=== PATIENT | male | born 1995 | race Caucasian/White ===

== ENCOUNTER 2017-07-04 12:50 | Inpatient (IN) | payer BC, OTHER ==
[~2017-07-04] VITALS: Ht 162.6 cm; Wt 74.2 kg
--- NOTE | 2017-07-04 13:17 | EMERGENCY ROOM VISIT NOTE ---
History Report prepared by Scribe: Jenna Berry Under the Supervision of: Dr. Santos Machado M.D. First contact with patient: 12:54 Chief Complaint: ALCOHOL OVERDOSE Stated Complaint: ALCOHOL OVERDOSE History of Present Illness The patient is a 21 year old white male with no documented past medical history who presents to the Emergency Room with complaints of episode of an alcohol overdose occurring just prior to arrival. History limited secondary to intoxication. Source of History: patient History Limited By: intoxication Onset: just prior to arrival Timing: other (episode) Review of Systems ROS limited secondary to intoxication Past Medical & Surgical Medical Problems: (1) Broken arm Limited secondary to intoxication. Family History Limited secondary to intoxication. Social History Smoking Status: Never Smoker Alcohol Use: occasionally Drug Use: none Housing Status: lives with roommate Occupation Status: employed Current/Historical Medications Unable to Obtain Active Prescriptions or Reported Meds Allergies Coded Allergies: No Known Allergies (Unverified , 08/23/15) Physical Exam Vital Signs Date Time Temp Pulse Resp B/P (MAP) Pulse Ox O2 Delivery O2 Flow Rate FiO2 07/04/17 17:30 66 20 92/34 98 07/04/17 17:00 69 16 93/49 98 07/04/17 16:34 82 16 90/44 96 Room Air 07/04/17 16:29 62 07/04/17 15:50 100/61 96 Room Air 07/04/17 14:30 65 16 104/49 97 07/04/17 13:33 69 20 104/59 94 Room Air 07/04/17 13:30 61 16 104/59 94 07/04/17 13:04 78 07/04/17 13:03 94 Room Air 07/04/17 12:57 35.9 71 14 111/84 96 Room Air Physical Exam GENERAL:NAD, Pt groans when asked questions. Pt was able to remove nasal trumpet. HENT: Normocephalic, atraumatic. EYES: Normal conjunctiva. Sclera non-icteric. PERRL. NECK: Supple. No nuchal rigidity. FROM. RESPIRATORY: Sonorous breath sound throughout. CTAB, no rhonchi, wheezing, crackles. CARDIAC: RRR, no MRG ABDOMEN: Soft, NTND, BS+ MSK: No LE edema NEURO: PERRL 3mm b/l, moves all 4s to painful stimuli SKIN: No rash or jaundice noted. No obvious signs of trauma to head, neck, back , abdomen or extremities. Medical Decision & Procedures Laboratory Results Test 07/04/17 13:43 Prothrombin Time 11.1 SECONDS (9.0-12.0) Prothromb Time International Ratio 1.0 (0.9-1.1) Total Bilirubin 0.3 mg/dl (0.2-1) Direct Bilirubin 0.1 mg/dl (0-0.2) Aspartate Amino Transf (AST/SGOT) 86 U/L (15-37) Alanine Aminotransferase (ALT/SGPT) 135 U/L (12-78) Alkaline Phosphatase 142 U/L (45-117) Total Protein 7.0 gm/dl (6.4-8.2) Albumin 4.2 gm/dl (3.4-5.0) Laboratory results reviewed by me ED Course 1300: The patient was evaluated in room A11B. A complete history and physical exam was performed. Medical Decision The patient is a 21 year old white male with no documented past medical history who presents to the Emergency Room with complaints of episode of an alcohol overdose occurring just prior to arrival. Differential diagnosis: Etiologies such as alcohol intoxication, toxicologic, infection, hypoglycemia, electrolyte abnormalities, cardiac sources, intracerebral event, neurologic, as well as others were entertained. Patient was seen and evaluated the bedside. Patient had a nasal trumpet placed which point patient moved all 4 extremities. Patient's eyes were equally round and reactive to light. Patient was later up and had to be redirected back into bed. GCS 11. His alcohol was elevated at 490. Patient's BNP was fairly unremarkable. I sent her care to Dr. Beaver pending reassessment and possible d/c to home if clinically sober and safe for discharge. Medication Reconcilliation Current Medication List: was personally reviewed by me Impression Primary Impression: Alcoholic intoxication Additional Impression: Alteration consciousness Scribe Attestation The scribe's documentation has been prepared under my direction and personally reviewed by me in its entirety. I confirm that the note above accurately reflects all work, treatment, procedures, and medical decision making performed by me. Departure Information Dispostion Still a Patient Prescriptions Unable to Obtain Active Prescriptions or Reported Meds Referrals No Doctor, Assigned (PCP) Patient Instructions [facility] Problem Qualifiers Primary Impression: Alcoholic intoxication Complication of substance-induced condition: uncomplicated Qualified Codes: F10.920 - Alcohol use, unspecified with intoxication, uncomplicated
[2017-07-04 14:22] LABS: BLOOD UREA NITROGEN 14 mg/dl (7-18); BUN/CREATININE RATIO 12.7 (10-20); CALCIUM 8.4 mg/dl (8.5-10.1); CARBON DIOXIDE 22 mmol/L (21-32); CHLORIDE 108 mmol/L (98-107); GLUCOSE 143 mg/dl (70-99); POTASSIUM 3.5 mmol/L (3.5-5.1); SODIUM 140 mmol/L (136-145)
--- NOTE | 2017-07-04 17:59 | History and Physical ---
History & Physical Date & Time of Service: Jul 04, 2017 at 17:51 Chief Complaint: Alcohol Overdose Primary Care Physician: No Doctor, Assigned History of Present Illness Source: hospital records, EMS The patient is a 21-year-old male brought into the emergency department due to excessive intoxication. His history of present illness is otherwise limited due to nonresponsiveness. Past Medical/Surgical History Medical Problems: (1) Broken arm Status: Resolved Family History Unknown due to nonresponsive state Social History Unknown due to nonresponsive state Smoking Status: Never Smoker Immunizations History of Influenza Vaccine: Unknown History of Tetanus Vaccine?: Unknown History of Pneumococcal: Unknown History of Hepatitis B Vaccine: Unknown Allergies Coded Allergies: No Known Allergies (Unverified , 08/23/15) Home Medications Unable to Obtain Active Prescriptions or Reported Meds Review of Systems His review of systems is not able to be done due to his nonresponsive state. Physical Exam Vital Signs Date Time Temp Pulse Resp B/P (MAP) Pulse Ox O2 Delivery O2 Flow Rate FiO2 07/04/17 16:34 82 16 90/44 96 Room Air 07/04/17 16:29 62 07/04/17 15:50 100/61 96 Room Air 07/04/17 14:30 65 16 104/49 97 07/04/17 13:33 69 20 104/59 94 Room Air 07/04/17 13:30 61 16 104/59 94 07/04/17 13:04 78 07/04/17 13:03 94 Room Air 07/04/17 12:57 35.9 71 14 111/84 96 Room Air The patient is nonresponsive, normocephalic and atraumatic, lying in bed and in no acute distress. HEENT--PERRL, EOMI, mucous membranes and oropharynx dry. Neck--supple, no JVD or bruits, thyroid normal, trachea midline, no adenopathy. Heart--normal S1 and S2, no extra beats, no murmurs, rubs or gallops. Lungs--clear bilaterally but overall diminished due to sedation, no respiratory distress, no accessory muscle use. Abdomen--normal bowel sounds and soft, nondistended, no hernias or masses, no organomegaly. Extremities--no cyanosis, clubbing or edema. There are good distal pulses b/l. Dermatologic--normal skin turgor, normal color, warm and dry, no abnormal lymph nodes, no rash. Neurologic--limited testing due to nonresponsive state Rheumatologic--limited testing due to nonresponsive state Psychiatric--sedated and nonresponsive. Diagnostics Laboratory Results Results Past 24 Hours Test 07/04/17 13:43 07/04/17 17:28 07/04/17 17:29 Range/Units Sodium Level 140 136-145 mmol/L Potassium Level 3.5 3.5-5.1 mmol/L Chloride Level 108 98-107 mmol/L Carbon Dioxide Level 22 21-32 mmol/L Anion Gap 10.0 3-11 mmol/L Blood Urea Nitrogen 14 7-18 mg/dl Creatinine 1.10 0.60-1.40 mg/dl Estimated GFR () 109.9 Estimated GFR (Non- 94.8 BUN/Creatinine Ratio 12.7 10-20 Random Glucose 143 70-99 mg/dl Calcium Level 8.4 8.5-10.1 mg/dl Ethyl Alcohol mg/dL 491.0 0-3 mg/dl Impression Assessment and Plan Alcohol intoxication/overdose--alcohol level was 491. Admitted to the telemetry unit for monitoring. Normal saline with potassium chloride 20 mEq at 150 ML's per hour. Famotidine 20 mg IV every 12 hours. Zofran 4 mg IV every 6 hours when necessary. I've added a CBC with differential, liver profile, PT/INR and hemoglobin A1c to current ED labs. We'll repeat any abnormal labs in the a.m. including alcohol level. Level of Care Telemetry Resuscitation Status FULL RESUSCITATION VTE Prophylaxis VTE Risk Assessment Done? Y/N: Yes Risk Level: Moderate Given or contraindicated: SCD's
[2017-07-04] MEDS ORDERED: ONDANSETRON INJ 2 MG/ML 2 ML VIAL IV PRN (18:00)
[2017-07-04 18:15] VITALS: O2SAT 96; Ht 162.6 cm; Wt 74.2 kg
[2017-07-04 18:16] VITALS: O2SAT 96
[2017-07-04 18:19] LABS: PROTHROMBIN TIME (PATIENT) 11.1 SECONDS (9.0-12.0)
[2017-07-04 18:21] LABS: BASO % 0.6 %; BASO ABS # 0.04 K/uL (0-0.2); COMPLETE YES; EOS % 1.1 %; HEMATOCRIT 44.2 % (42-52); IG% 0.6 %; LYMPH % 27.1 %; MEAN CELL VOLUME 93.6 fL (80-100); MEAN CORPUSCULAR HEMOGLOBIN 32.8 pg (25-34); MEAN CORPUSCULAR HGB CONC 35.1 g/dl (32-36); MONO % 14.8 %; NEUT % 55.8 %; PLATELET COUNT 229 K/uL (130-400); RED BLOOD COUNT 4.72 M/uL (4.7-6.1); WHITE BLOOD COUNT 6.27 K/uL (4.8-10.8)
[2017-07-04 19:00] VITALS: BP 122/61; PULSE 99; TEMP 36.5; O2SAT 100
--- NOTE | 2017-07-04 19:02 | DIAGNOSTIC IMAGING REPORT ---
HEAD WITHOUT CONTRAST (CT) CLINICAL HISTORY: 21 years-old Male with AMS, ETOH. Acute altered mental status with alcohol intoxication. Initial exam. TECHNIQUE: Multiple axial CT images of the head were obtained without contrast. A dose lowering technique was utilized adhering to the principles of ALARA. CT DOSE: 1400.53 mGy.cm COMPARISON: None. FINDINGS: No acute intracranial hemorrhage, midline shift, mass, large territorial ischemia or abnormal extra-axial collection. The calvarium is intact. Mild polypoid mucosal disease involves the left maxillary sinus with small air-fluid level. Mild ethmoid and sphenoid sinus disease also noted. Mastoid air cells and middle ear cavities are clear. Soft tissues are unremarkable. Orbits are symmetric.. IMPRESSION: 1. No acute intracranial abnormality. 2. Mild paranasal sinus disease. The above report was generated using voice recognition software. It may contain grammatical, syntax or spelling errors. Electronically signed by: Tristen Lopez M.D. 07/04/2017 7:01 PM Dictated Date/Time: 07/04/2017 6:58 PM
--- NOTE | 2017-07-04 19:19 | EMERGENCY ROOM VISIT NOTE ---
ED Visit Note First contact with patient: 16:07 I received this patient in signout at the change of shift from Dr. Machado, pending a more sober state. The patient was reevaluated several hours after arrival to the emergency department with continued essential unresponsiveness. He does occasionally moan with painful stimuli. A CT scan of the head was performed and is negative for acute intracranial abnormality. The patient's case was discussed with the hospitalist service who will evaluate the patient for admission and further management. I did contact the patient's mother and father. They were made aware of the patient's condition and plans for admission. Diagnosis: Severe alcohol intoxication
[2017-07-04] MEDS: NSS + 20MEQ KCL 1000ML 1,000 ML IV SCH (20:33)
[2017-07-04] MEDS: FAMOTIDINE IV INJ 20 MG in DEXTROSE 5% 100ML 100 ML IV SCH (20:33)
[2017-07-04 23:50] VITALS: BP 114/57; PULSE 76; TEMP 36.7; O2SAT 97
[2017-07-05] MEDS: NSS + 20MEQ KCL 1000ML 1,000 ML IV SCH (03:07)
[2017-07-05 04:02] VITALS: BP 102/55; PULSE 67; TEMP 36.8; O2SAT 97
[2017-07-05 07:09] LABS: BASO % 0.6 %; BASO ABS # 0.03 K/uL (0-0.2); COMPLETE YES; EOS % 1.4 %; IG% 0.8 %; LYMPH % 45.8 %; LYMPH ABS # 2.35 K/uL (1.2-3.4); MEAN CELL VOLUME 95.7 fL (80-100); MEAN CORPUSCULAR HEMOGLOBIN 31.9 pg (25-34); MEAN CORPUSCULAR HGB CONC 33.3 g/dl (32-36); MEAN PLATELET VOLUME 8.7 fL (7.4-10.4); MONO % 11.9 %; NEUT % 39.5 %; PLATELET COUNT 215 K/uL (130-400); WHITE BLOOD COUNT 5.13 K/uL (4.8-10.8)
[2017-07-05] MEDS: FAMOTIDINE IV INJ 20 MG in DEXTROSE 5% 100ML 100 ML IV SCH (07:35)
[2017-07-05 07:43] LABS: BUN/CREATININE RATIO 8.6 (10-20); CALCIUM 8.3 mg/dl (8.5-10.1); MAGNESIUM 1.9 mg/dl (1.8-2.4); POTASSIUM 4.2 mmol/L (3.5-5.1)
[2017-07-05 08:27] VITALS: BP 121/59; PULSE 79; TEMP 36.9; O2SAT 97
[2017-07-05 11:54] VITALS: BP 131/77; PULSE 70; TEMP 37.5; O2SAT 98
--- NOTE | 2017-07-05 12:03 | Discharge Instructions ---
Discharge Instructions Date of Service Jul 05, 2017. Admission Reason for Admission: Alcoholic Intoxication Discharge Discharge Diagnosis / Problem: Alcohol intoxication Discharge Goals Goal(s): Improve nutritional status, Prevent Disease Progression Activity Recommendations Activity Limitations: per Instructions/Follow-up section . Instructions / Follow-Up Instructions / Follow-Up While in the hospital we have you IV fluids to rehydrate you as well as IV medication to protect your stomach Please follow up with [facility] to do repeat lab work. Please refrain from drinking excessive alcohol as it can damage your liver and have several other dangerous health consequences. Current Hospital Diet Patient's current hospital diet: Regular Diet Discharge Diet Recommended Diet: Regular Diet Pending Studies Studies pending at discharge: no Laboratory Results Hemoglobin A1c Test 07/04/17 13:43 Range/Units Medical Emergencies . Who to Call and When: Medical Emergencies: If at any time you feel your situation is an emergency, please call 911 immediately. . Non-Emergent Contact Non-Emergency issues call your: Primary Care Provider . . "Provider Documentation" section prepared by Smith Adame. . VTE Core Measure Inpt VTE Proph given/why not?: SCD's
--- NOTE | 2017-07-05 12:14 | Discharge Summary ---
Discharge Summary Date of Service Jul 05, 2017. (Smith Adame MD) Discharge Summary Admission Date: Jul 04, 2017 at 17:46 Discharge Date: Jul 05, 2017 Discharge Disposition: Home Principal Diagnosis: Alcohol intoxication Immunizations: Have You Had Influenza Vaccine: Unknown History of Tetanus Vaccine?: Unknown History of Pneumococcal: Unknown History of Hepatitis B Vaccine: Unknown (Smith Adame MD) Medication Reconciliation Medication Profile: Unable to Obtain Active Prescriptions or Reported Meds Discharge Exam Patient with no acute events overnight Was admitted for alcohol intoxication and non responsiveness Review of Systems: Constitutional: No fever, No chills, No sweats Respiratory: No cough, No shortness of breath Cardiovascular: No chest pain, No palpitations Abdomen: No pain, No nausea, No vomiting, No diarrhea Musculoskeletal: No joint pain, No muscle pain Neurologic: No paralysis, No weakness, No numbness/tingling Physical Exam: General Appearance: WD/WN, no apparent distress Eyes: normal inspection, PERRL ENT: hearing grossly normal, pharynx normal Neck: supple, trachea midline Respiratory/Chest: lungs clear, no respiratory distress, no accessory muscle use Cardiovascular: regular rate, rhythm, no edema, no murmur, normal peripheral pulses Abdomen / GI: normal bowel sounds, non tender, soft Extremities: normal inspection, no calf tenderness, normal capillary refill , no pedal edema Neurologic/Psychiatric: alert, normal mood/affect, oriented x 3 (Smith Adame MD) Hospital Course 21 year old admitted on 07/04 for Alcohol intoxication/overdose--alcohol level was 491 in the ED. In the ED he was found to have an AST of 86 and an ALT of 135. The patient was reevaluated several hours after arrival to the emergency department with continued essential unresponsiveness and was therefore admitted to the hospital. A CT scan of the head was performed and was negative for acute intracranial abnormality. Admitted to the telemetry unit for monitoring. He received normal saline with potassium chloride 20 mEq at 150 ML's per hour. He received famotidine 20 mg IV every 12 hours. On the morning of 07/05 the patient was alert and responsive. He was hemodynamically stable and in no acute distress. He is to follow up with [facility] for counselling and repeat LFT's. Total Time Spent: Less than 30 minutes This includes examination of the patient, discharge planning, medication reconciliation, and communication with other providers. (Smith Adame MD) Discharge Instructions Please refer to the electronic Patient Visit Report (Discharge Instructions) for additional information. (Smith Adame MD) Additional Copies To [facility] Reviewed: Pt Seen/Exam by Me (Aranza Guerrero MD) History Resident Physician Supervision Note: I interviewed and examined the patient. Discussed with Dr. Adame and agree with findings and plan as documented in the note. Any exceptions or clarifications are listed here: Pt feeling completely fine, no complaints. Discussed avoidance of binge drinking. No events on tele overnight. LFTs not in alcoholic hepatitis pattern therefore encouraged follow up with S upon discharge for further evaluation as an outpt. NAD, AAOx3 RRR no mgr\CTAB no wcr Abd +BS soft NT ND, no HSM Ext no edema or calf tenderness Skin no rashes, no jaundice 21 yo male with alcohol intoxication admitted overnight for observation due to persistent unresponsiveness. Completely sober the next day, LFTs to be repeated as outpt and trended to normal vs RUQ US and further lab tests to eval for cause of hepatitis. Documented By: Aranza Guerrero (Aranza Guerrero MD)
[2017-07-05 12:22] VITALS: BP 131/77; PULSE 70; TEMP 37.5; O2SAT 98
[2017-07-06 06:36] LABS: ESTIMATED AVERAGE GLUCOSE 97 mg/dl; HA1C FLAG Normal (Normal)
== END 2017-07-05 12:47 | disposition home or self-care (01) | DRG 918 ==
LOC: EDBD 12:50 → C.EDA 12:52 → C.2E 17:46 → ENRESERV 17:59
PROVIDERS: ADMIT Hospitalist; ATTEND Hospitalist
DX: T51.0X1A Toxic effect of ethanol, accidental (unintentional), initial encounter (principal); F10.129 Alcohol abuse with intoxication, unspecified; Y90.9 Presence of alcohol in blood, level not specified